=== PATIENT | male | born 1950 | race Caucasian/White ===

== ENCOUNTER 2017-07-13 20:04 | Emergency (ER) | payer OTHER ==
[~2017-07-13] VITALS: Ht 175.3 cm; Wt 64.4 kg
[2017-07-13 20:53] LABS: Hemoglobin 14.7 g/dL (13.5-17.5); White Blood Cell 6.2 10^3/uL (4.4-10.8)
[2017-07-13 20:54] LABS: Hematocrit 43.5 % (41.0-53.0); Mean Corpuscular Hgb Conc. 33.7 g/dL (32.0-36.0); Mean Corpuscular Volume 100.8 fL (80.0-100.0); Mean Platelet Volume 8.5 fL (6.9-10.8); Platelet Count (auto) 131 10^3/uL (140-450); Red Cell Distribution Width 13.7 % (11.8-14.3)
[2017-07-13 21:07] LABS: Metamyelocytes % 0; Myelocytes % 0; Promyelocytes % 0; Reactive Lymphocytes 0
[2017-07-13 21:16] LABS: Albumin 3.8 g/dL (3.4-5.0); BUN/Creatinine Ratio 13.7; Calcium 8.1 mg/dL (8.5-10.1); Potassium 3.5 mmol/L (3.5-5.1)
[2017-07-13 21:19] LABS: Bilirubin, Total 0.4 mg/dL (0.2-1.0); Total Protein 6.4 g/dL (6.4-8.2)
[2017-07-13 21:26] LABS: B-Type Natriuretic Peptide 15.66 pg/mL (0-100)
[2017-07-13 21:30] LABS: Temperature: 21.9 C (20.0-25.0)
[2017-07-13] MEDS ORDERED: cefTRIAXone 1GM/50ML D5W 50 ML IV ONE (21:45)
[2017-07-13] MEDS ORDERED: MORPHINE SULF INJ 2 MG/ML SYRINGE 1ML IV ONE (21:45)
[2017-07-13] MEDS ORDERED: ONDANSETRON HCL 4 MG/2 ML VIAL IV ONE (21:45)
[2017-07-13 21:49] LABS: Urine RBC None Seen /hpf (0 - 3)
[2017-07-13 22:09] LABS: Platelet Estimate Decreased
[2017-07-13 22:10] LABS: Macrocytosis Slight
[2017-07-13 22:12] LABS: Urine Bilirubin Negative (Negative); Urine Blood Negative /uL (Negative); Urine Glucose Normal (Normal); Urine Ketone Negative (Negative); Urine Nitrite Negative (Negative); Urine Urobilinogen Normal (Negative)
[2017-07-13 22:15] LABS: Urine Color Straw (Yellow)
[2017-07-13 23:18] VITALS: BP 135/81
== END 2017-07-13 23:33 | disposition home or self-care (01) ==
LOC: ER 20:08
DX: N45.1 Epididymitis (principal); N43.3 Hydrocele, unspecified; I25.10 Atherosclerotic heart disease of native coronary artery without angina pectoris
CPT/HCPCS: 36415; 76870; 80053; 81001; 83880; 84484; 85007; 85027; 93005; 96365; 96375; 99285; J0696; J2270; J2405